=== PATIENT | female | born 1965 | race Caucasian/White ===

== ENCOUNTER 2019-01-09 16:26 | Outpatient (CLI) | payer OTHER ==
--- NOTE | 2019-01-09 16:56 | RAD ---
XR Foot Lt 3 View STANDARD INDICATION: Left foot pain after fall COMPARISON: None. FINDINGS: Bones: No acute fracture identified. 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 Lisfranc alignment: Lisfranc alignment appears within normal limits. Soft tissues: No soft tissue injury demonstrated. No radiographic foreign body demonstrated. IMPRESSION: No acute osseous abnormality.
== END 2019-01-09 16:27 | disposition home or self-care (01) ==
LOC: BICRAD 16:26
PROVIDERS: ATTEND Specialist
DX: M79.672 Pain in left foot (principal)